=== PATIENT | male | born 1985 | race Two or more races ===

== ENCOUNTER → 2023-12-09 | Outpatient (CLI) | payer SELFPAY ==
[2023-12-09 14:06] LABS: LDH LACTATE DEHYDROGENASE 170 U/L (120-246)
[2023-12-09 14:10] LABS: THYROID STIMULATING HORMONE 2.046 uIU/ML (0.55-4.78)
[2023-12-09 14:14] LABS: MONO REFLEX EBV COMP NEGATIVE (NEGATIVE)
[2023-12-09 14:39] LABS: HIV 1&2 SCREEN NEGATIVE (NEGATIVE)
[2023-12-09 14:47] LABS: HEPATITIS C VIRUS ABY INDEX < 0.02 INDEX (<0.8)
[2023-12-11 14:26] LABS: EBV VIRAL CAPSID AG IGM < 36.00 U/mL (<36.00)
== END ==
LOC: M LAB 12:43
PROVIDERS: ATTEND Student in an Organized Health Care Education/Training Program
DX: R59.9 Enlarged lymph nodes, unspecified (principal)

== ENCOUNTER → 2023-12-09 | Outpatient (REF) | payer SELFPAY | LOC: M SFHCPLAZ 12:17 | PROVIDERS: ATTEND Student in an Organized Health Care Education/Training Program | DX: R59.9 Enlarged lymph nodes, unspecified (principal) ==

== ENCOUNTER → 2023-12-11 | Outpatient (CLI) | payer BC, SELFPAY | LOC: M RAD 13:47 | PROVIDERS: ATTEND Student in an Organized Health Care Education/Training Program | DX: R59.0 Localized enlarged lymph nodes (principal) ==

== ENCOUNTER → 2023-12-14 | Outpatient (CLI) | payer SELFPAY ==
[~2023-12-14] MED LIST: ISOVUE-370 76% 100ML VIAL As Ordered ONE
== END ==
LOC: M RAD 12:28
PROVIDERS: ATTEND Student in an Organized Health Care Education/Training Program
DX: R59.0 Localized enlarged lymph nodes (principal)
CPT/HCPCS: 70491; Q9967

== ENCOUNTER → 2023-12-15 | Outpatient (CLI) | payer SELFPAY ==
[~2023-12-15] MED LIST changes: +AUGM500T34 PO; -ISOVUE-370 76% 100ML VIAL As Ordered ONE
[2023-12-15 17:36] LABS: HEMATOCRIT 48.1 % (42.0-52.0); MEAN CORPUSCULAR HEMOGLOBIN 29.5 pg (27.0-33.0); MEAN CORPUSCULAR HGB CONC 33.3 g/dl (32.0-36.5); MEAN CORPUSCULAR VOLUME 88.6 fl (80.0-96.0); PLATELET COUNT, AUTOMATED 260 10^3/uL (150-450); RED BLOOD COUNT 5.43 10^6/uL (4.30-6.10); WHITE BLOOD COUNT 9.7 10^3/uL (4.0-10.0)
[2023-12-15 17:41] LABS: ERYTHROCYTE SEDIMENTATION RATE 12 mm/hr (0-15)
[2023-12-15 17:53] LABS: INR 1.08; PROTHROMBIN TIME 13.7 SECONDS (12.5-14.5)
[2023-12-15 17:58] LABS: ALBUMIN 4.2 G/DL (3.2-5.2); ALKALINE PHOSPHATASE 63 U/L (46-116); ALT/SGPT 34 U/L (7.0-40); AST/SGOT 13 U/L (<34); BILIRUBIN,TOTAL 0.6 MG/DL (0.3-1.2); BLOOD UREA NITROGEN 13 MG/DL (9-23); CALCIUM LEVEL 9.6 MG/DL (8.5-10.1); CARBON DIOXIDE LEVEL 29 MMOL/L (20-31); CHLORIDE LEVEL 107 MMOL/L (98-107); CREATININE FOR GFR 1.04 MG/DL (0.70-1.30); GLOMERULAR FILTRATION RATE > 60.0 (>60); GLUCOSE, FASTING 82 MG/DL (60-100); POTASSIUM SERUM 4.4 MMOL/L (3.5-5.1); SODIUM LEVEL 141 MMOL/L (136-145); TOTAL PROTEIN 7.5 G/DL (5.7-8.2)
== END ==
LOC: M LAB 12-14 13:32 → M PLALAB 14:41 → M LAB 14:41
PROVIDERS: ATTEND Student in an Organized Health Care Education/Training Program
DX: R59.0 Localized enlarged lymph nodes (principal)

== ENCOUNTER → 2023-12-17 | Outpatient (CLI) | payer BC ==
[~2023-12-17] MED LIST changes: +LIDOCAINE 1% MDV 20ML VIAL As Ordered ONE
[2023-12-17 14:20] VITALS: TEMP 97.1
[2023-12-17 14:52] VITALS: BP 160/93; O2SAT 100
== END ==
LOC: M IRPRO 14:11
PROVIDERS: ATTEND Student in an Organized Health Care Education/Training Program
DX: R59.0 Localized enlarged lymph nodes (principal)

== ENCOUNTER → 2024-03-11 | Outpatient (CLI) | payer BC ==
[~2024-03-11] MED LIST changes: -LIDOCAINE 1% MDV 20ML VIAL As Ordered ONE
== END ==
LOC: M RAD 14:26
PROVIDERS: ATTEND Student in an Organized Health Care Education/Training Program
DX: R59.9 Enlarged lymph nodes, unspecified (principal)

== ENCOUNTER → 2024-04-08 | Outpatient (CLI) | payer BC | LOC: M PLALAB 16:14 | PROVIDERS: ATTEND Student in an Organized Health Care Education/Training Program | DX: R59.0 Localized enlarged lymph nodes (principal) ==

== ENCOUNTER → 2024-10-11 | Outpatient (REF) ==
[2024-10-11 12:16] LABS: SOFIA COVID ANTIGEN NEGATIVE (NEGATIVE)
== END ==
LOC: M EMP 11:46
PROVIDERS: ATTEND Family Medicine
DX: Z20.822 Contact with and (suspected) exposure to COVID-19 (principal)